=== PATIENT | female | born 1985 | race Hispanic/Latino ===

== ENCOUNTER 2018-03-04 14:22 | Emergency (ER) | payer OTHER, SELFPAY ==
[2018-03-04 15:07] LABS: Bilirubin Negative (Negative); Blood, Urine Trace (Negative); Clarity Clear (Clear); Glucose, Urine (Dipstick) Negative (Negative); Leukocyte Negative (Negative); Nitrite Negative (Negative); Protein, Urine (Dipstick) Trace mg/dL (Neg-Trace); Urobilinogen 0.2 mg/dL (0.2-1.0)
[2018-03-04] MEDS ORDERED: Sodium Chloride 0.9% 1,000 ML ONE (15:14)
[2018-03-04] MEDS ORDERED: Acetaminophen 500 MG TAB ONE (15:15)
[2018-03-04 15:44] LABS: #Lymphocytes 2.1 thou/uL (1.20-3.40); #Neutrophils 5.8 thou/uL (1.40-6.50); %Basophils 0.9 % (0.0-1.0); %Eosinophils 1.2 % (0.0-10.0); %Lymphocytes 23.9 % (21.0-51.0); %Neutrophils 66.1 % (42.0-75.0); Hemoglobin 12.4 g/dL (12.0-16.0); Mean Corpuscular HGB CONC 33.1 g/dL (32.0-36.0); Mean Corpuscular Hemoglobin 30.4 pg (27.0-31.0); Mean Platelet Volume 7.7 fL (7.4-10.4); Platelet Count 274 thou/uL (130-400); RBC Distribution Width 11.6 % (11.5-14.5); Red Blood Cell (RBC) Count 4.08 mill/uL (4.20-5.40); White Blood Cell (WBC) Count 8.8 thou/uL (4.8-10.8)
[2018-03-04 15:45] LABS: #Basophils 0.1 thou/uL (0.0-0.2); #Eosinphils 0.1 thou/uL (0.0-0.7); #Monocytes 0.7 thou/uL (0.11-0.59); Bacteria/HPF Rare-Few HPF (None Seen); RBC/HPF 0-3 HPF (0-3); Squamous Epithelial 0-3 HPF (0-3); WBC/HPF 0-3 HPF (0-3)
[2018-03-04 15:56] LABS: Anion Gap 12 mmol/L (10-20); BUN (Urea Nitrogen) 10 mg/dL (7.0-18.7); Calc. Creatinine Clearance 0 mL/min (70-130); Calcium 8.9 mg/dL (7.8-10.44); Carbon Dioxide 21 mmol/L (22-29); Chloride 106 mmol/L (98-107); Estimated GFR-MDRD Greater than 90; Glucose 107 mg/dL (70-105); Potassium 3.9 mmol/L (3.5-5.1); Sodium 135 mmol/L (136-145)
--- NOTE | 2018-03-04 16:07 | ULT ---
PELVIC ULTRASOUND: Date: 03/04/18 HISTORY: Pelvic pain and cramping. No bleeding. Positive test at home. FINDINGS: Real-time images of the pelvis were obtained transvaginally. These show some small nabothian cysts. T here is an intrauterine gestational sac and pole. heart rate is 133 beats/minute. No sign s of any subchorionic bleed. [place]-rump length measurements are 5.2 mm, corresponding to 6 weeks and 2 days. The right and left ovaries are well visualized and normal in appearance. DOPPLER EVALUATION WITH SPECTRAL ANALYSIS: Normal flow is shown to the adnexa. No free fluid is seen. IMPRESSION: Single viable intrauterine . [place]-rump length measurements corresponding to 6 weeks and 2 d ays. Estimated date of delivery is 10/26/18. POS: NAM
== END 2018-03-04 16:17 | disposition home or self-care (01) ==
LOC: NAV ERS 14:22
DX: O99.89 Other specified diseases and conditions complicating pregnancy, childbirth and the puerperium (principal); R10.2 Pelvic and perineal pain; Z3A.01 Less than 8 weeks gestation of pregnancy
CPT/HCPCS: 76856; 80048; 81003; 81015; 84702; 85025; J7050